=== PATIENT | female | born 1960 | race Caucasian/White ===

== ENCOUNTER 2020-02-23 07:26 | Emergency (ER) | payer BC, SELFPAY ==
[2020-02-23 07:42] VITALS: BP 136/69; PULSE 82; RESP 18; TEMP 36.7; O2SAT 97; BMI 42.5
--- NOTE | 2020-02-23 07:42 | ECG_ITS ---
Measurements Intervals [place] Rate: 72 P: 47 MS: 137 QRS: 51 QRSD: 92 T: 47 QT: 411 QTc: 451 SINUS RHYTHM INTERPRETATION BASED ON A DEFAULT AGE OF 40 YEARS Compared to ECG 08/31/2018 05:42:49 Myocardial infarct finding no longer present Electronically Signed On 02-23-2020 15:00:10 CDT by Michael Watson M.D. [id number]
--- NOTE | 2020-02-23 07:42 | XR_ITS ---
WS: [id number] CHEST XRAY TECHNIQUE: Portable chest. CLINICAL INFORMATION: cp COMPARISON: August 07, 2018 FINDINGS: Heart: Normal cardiac silhouette. Lungs: Lungs are clear. No consolidation or pleural effusion. Bones: Normal visualized bony structures. XR/XR chest 1V portable [id number] IMPRESSION: Normal chest
--- NOTE | 2020-02-23 07:43 | W.ED.CHESTPA ---
HPI - Chest Pain General: Chief Complaint: Chest Pain Stated Complaint: CHEST PAIN Time Seen by Provider: 02/23/20 07:33 Source: patient Mode of arrival: ambulatory Limitations: no limitations History of Present Illness: HPI narrative: Patient comes in today for complaints of 2 episodes of chest pain this morning. First episode occurred while she was sleeping about 3:00. Patient states she was awakened by some chest discomfort that went away suddenly and she went back to sleep. About 3 hours later patient had another episode of chest pain that occurred when she had a coughing spell. Patient states that the pain lasted about 30 minutes and radiated up into her left neck, during that time she took 3 nitro tablets that she had left from 2 years ago. Patient does have a history of coronary artery disease with 3 stents placed in 2018. Patient did have a stress test done at that time 2. Dr. Pack is patient's rn practitioner. MD complaint: chest pain Pertinent past history: coronary artery disease Timing of current episode: episodic Onset: during rest Pain location: parasternal Pain radiation: neck Severity: moderate Quality: sharp Relieving factors: nitroglycerin Exacerbating factors: nothing Treatment prior to arrival: nitroglycerin Review of Systems General: Reports: 10 or more systems reviewed and unremarkable except in HPI and below Card: Reports: chest pain [facility] ED PFSH: Social History Smoking and tobacco status: former smoker Physical Exam Const: COMMON NORMALS: no apparent distress and oriented x3 GENERAL APPEARANCE: cooperative HENMT: COMMON NORMALS: normocephalic, TM's normal bilaterally and external nose normal HEAD & SCALP: normal to inspection and normocephalic NOSE: external nose normal TYMPANIC MEMBRANE: TM's normal bilaterally MOUTH: oral and palatal mucosa normal THROAT: posterior oropharynx normal Eye: GENERAL EYE: normal appearance of both eyes Neck/C-Spine: COMMON NORMALS: full ROM Lymph: LYMPHATIC: no lymphadenopathy noted Chest: COMMONS NORMALS: inspection of chest normal Resp: COMMON NORMALS: normal respiratory effort EFFORT & INSPECTION: Yes able to speak in complete sentences Cardio: COMMON NORMALS: regular rate and regular rhythm RATE: regular rate RHYTHM: regular rhythm GI: COMMON NORMALS: non-tender : COMMON NORMALS: Yes no CVA tenderness BLADDER/KIDNEY EXAM: Yes no CVA tenderness Back/Pelvis: COMMON NORMALS: no CVA tenderness and thoracic and lumbar spine normal to inspection Extremity: COMMON NORMALS: normal to inspection Neuro: COMMON NORMALS: oriented x3 and moves all extremities Psych: COMMON NORMALS: mental status grossly normal and cooperative Skin: COMMON NORMALS: no rashes or lesions noted GENERAL SKIN EXAM: no rashes or lesions noted Course ED course: 0850, patient resting well. Patient reports headache but otherwise is chest pain-free. Reviewed first labs with the troponin being negative. Recommended repeat troponin and 2 hours at 10:00. Patient reported understanding and agreed to plan. Vital Signs: Vital signs: Vital Signs Temperature 98.0 F 02/23/20 07:42 Pulse Rate 81 02/23/20 09:14 Respiratory Rate 15 02/23/20 09:14 Blood Pressure 128/61 02/23/20 09:14 Pulse Oximetry 99 02/23/20 09:14 MDM - Chest Pain MDM Narrative: Medical decision making narrative: Patient comes in today for 2 episodes of intermittent chest pain starting at 3:00 this morning. Patient at this time is resolved with chest pain. Patient appears well. Vital signs are normal. Respirations were even lungs were clear to auscultation. Differential diagnosis includes ACS, stable angina, muscle spasm, esophageal spasm. Patient reported that the second episode of chest pain occurred when patient had a significant coughing spell. Patient also reported that the first time woke her up out of sleep though but she was able to go right back to sleep afterwards. Suspect may be a muscle spasm due to the coughing spell. Laboratory values indicated no acute cardiac injury and EKG noted no abnormalities. Chest x-ray was normal. We will have patient follow-up with cardiology for further evaluation and treatment due to patient's history. Patient reports understanding agreed to plan. Lab Data: Labs: Lab Results 02/23/20 02/23/20 02/23/20 Range/Units 07:57 08:00 08:00 WBC 4.8 (4.0-10.0) 10^3/ uL RBC 4.27 (4.1-5.3) 10^6/u L Hgb 12.4 (11.5-15.3) g/dL Hct 39.6 (37.0-47.0) % MCV 92.7 (81-99) fL MCH 29.0 (28.0-34.0) pg MCHC 31.3 (30.0-36.0) g/dL RDW 14.8 (12.1-15.1) % Plt Count 328 (130-400) 10^3/c mm MPV 9.3 (7.4-10.4) fL Neut % (Auto) 62.0 % Lymph % (Auto) 25.9 % [place] % (Auto) 9.6 % Eos % (Auto) 1.7 % Baso % (Auto) 0.6 % Neut # (Auto) 3.0 (1.8-7.7) 10^3/u L Lymph # (Auto) 1.2 (0.8-4.8) 10^3/u L [place] # (Auto) 0.5 (0.2-0.9) 10^3/u L Eos # (Auto) 0.1 (0.0-0.8) 10^3/u L Baso # (Auto) 0.0 (0.0-0.1) 10^3/u L Nucleated RBC % (a uto) 0 % Nucleated RBCs # 0.0 /100WBC Sodium 141 (136-145) mmol/L Potassium 3.7 (3.5-5.1) mmol/L Chloride 99 (98-107) mmol/L Carbon Dioxide 28 (22-29) mmol/L Anion Gap 17.7 (5-19) BUN 10 (6-20) mg/dL Creatinine 0.7 (0.5-0.9) mg/dL GFR Calculation 85.6 L (90-130) mL/min Glucose 89 (65-115) mg/dL Calculated Osmolal ity 287 (285-295) mOsm/k g Calcium 9.8 (8.5-10.5) mg/dL Total Bilirubin 0.3 (0.15-1.2) mg/dL AST 22 (0-32) U/L ALT 20 (0-33) U/L Alkaline Phosphata se 96 (35-105) IU/L Troponin T Baselin e (0-10) ng/mL Troponin T 120 Min [place] (0-10) ng/mL Delta Troponin T (0-10) ABS# Total Protein 7.1 (6.6-8.7) g/dL Albumin 4.5 (3.5-5.2) g/dL Globulin 2.6 (1.3-4.6) g/dL Lipase 19 (13-60) U/L Urine Color Colorless (Yellow) Urine Appearance Clear (CLEAR) Urine pH 5.0 (5-7) Ur Specific Gravit y 1.007 (1.005-1.030) Urine Protein Neg (Negative) Urine Glucose (UA) Norm (Normal) Urine Ketones Negative (Negative) Urine Blood Neg (Negative) Urine Nitrate Negative (Negative) Urine Bilirubin Neg (NEGATIVE) Urine Urobilinogen Norm (Negative) mg/dL Ur Leukocyte Elenita ase Negative (Negative) 02/23/20 02/23/20 Range/Units 08:00 10:00 WBC (4.0-10.0) 10^3/ uL RBC (4.1-5.3) 10^6/u L Hgb (11.5-15.3) g/dL Hct (37.0-47.0) % MCV (81-99) fL MCH (28.0-34.0) pg MCHC (30.0-36.0) g/dL RDW (12.1-15.1) % Plt Count (130-400) 10^3/c mm MPV (7.4-10.4) fL Neut % (Auto) % Lymph % (Auto) % [place] % (Auto) % Eos % (Auto) % Baso % (Auto) % Neut # (Auto) (1.8-7.7) 10^3/u L Lymph # (Auto) (0.8-4.8) 10^3/u L [place] # (Auto) (0.2-0.9) 10^3/u L Eos # (Auto) (0.0-0.8) 10^3/u L Baso # (Auto) (0.0-0.1) 10^3/u L Nucleated RBC % (a uto) % Nucleated RBCs # /100WBC Sodium (136-145) mmol/L Potassium (3.5-5.1) mmol/L Chloride (98-107) mmol/L Carbon Dioxide (22-29) mmol/L Anion Gap (5-19) BUN (6-20) mg/dL Creatinine (0.5-0.9) mg/dL GFR Calculation (90-130) mL/min Glucose (65-115) mg/dL Calculated Osmolal ity (285-295) mOsm/k g Calcium (8.5-10.5) mg/dL Total Bilirubin (0.15-1.2) mg/dL AST (0-32) U/L ALT (0-33) U/L Alkaline Phosphata se (35-105) IU/L Troponin T Baselin e 9 (0-10) ng/mL Troponin T 120 Min [place] 7.55 (0-10) ng/mL Delta Troponin T -1.45 L (0-10) ABS# Total Protein (6.6-8.7) g/dL Albumin (3.5-5.2) g/dL Globulin (1.3-4.6) g/dL Lipase (13-60) U/L Urine Color (Yellow) Urine Appearance (CLEAR) Urine pH (5-7) Ur Specific Gravit y (1.005-1.030) Urine Protein (Negative) Urine Glucose (UA) (Normal) Urine Ketones (Negative) Urine Blood (Negative) Urine Nitrate (Negative) Urine Bilirubin (NEGATIVE) Urine Urobilinogen (Negative) mg/dL Ur Leukocyte Elenita ase (Negative) EKG Data^: EKG 1: Attestation: I personally reviewed and interpreted this EKG as follows: (0755, NSR, no ectopy, no ST elevation, rate regular @ 72 bpm) Discharge Plan Discharge Patient Disposition: Home, Self-Care Clinical Impression: Atypical chest pain Condition: Stable Prescriptions: New Nitrostat 0.4 mg tablet, sublingual 0.4 mg SUBLINGUAL Q5M PRN (Reason: chest pain) Qty: 20 RF: 0 No Action clopidogrel 75 mg tablet 75 mg PO DAILY Qty: 90 RF: 3 multivitamin Tablet 1 tab PO DAILY RF: 0 cyclobenzaprine 10 mg tablet 10 mg PO Q6H PRN (Reason: Pain) RF: 0 citalopram 40 mg tablet 40 mg PO DAILY RF: 0 trazodone 50 mg tablet 50 mg PO BEDTIME RF: 0 prednisone 5 mg tablet 5 mg PO DAILY RF: 0 acetaminophen-codeine 300-30 mg tablet 1 tab PO Q6H PRN (Reason: Pain) RF: 0 alprazolam 0.25 mg tablet 0.25 mg PO BID PRN (Reason: Anxiety) RF: 0 Vitamin C 500 mg Tablet 500 mg PO DAILY RF: 0 pantoprazole 40 mg tablet,delayed release (DR/EC) 40 mg PO DAILY RF: 0 aspirin 81 mg Tablet,Chewable 81 mg PO DAILY RF: 0 montelukast 10 mg tablet 10 mg PO DAILY RF: 0 pravastatin 10 mg tablet 5 mg PO DAILY RF: 0 Referrals: Zach Siu DO [Primary Care Provider] - Discharge Diet: Usual diet Discharge Activity: Increase activity as tolerated Patient Instructions: Chest Pain (ED) Activity Restrictions/Additional Instructions: Drink plenty of water. Activity as tolerated. Continue with routine medications as directed. Follow-up with primary care in 1 week. Case management will contact you regarding appointment follow-up with cardiology. Coding Level of Care Code ED Technical Rep for [employer] Fwd Exam Comprehensive
[2020-02-23 07:54] VITALS: O2SAT 97
[2020-02-23 08:16] LABS: Add Urine Microscopic? NO
[2020-02-23 08:21] LABS: Basophils % 0.6 %; Eosinophils # 0.1 10^3/uL (0.0-0.8); Eosinophils % 1.7 %; Hematocrit 39.6 % (37.0-47.0); Hemoglobin 12.4 g/dL (11.5-15.3); Lymphocytes # 1.2 10^3/uL (0.8-4.8); Lymphocytes % 25.9 %; Mean Corpuscular HGB Conc 31.3 g/dL (30.0-36.0); Mean Corpuscular Volume 92.7 fL (81-99); Mean Platelet Volume 9.3 fL (7.4-10.4); Monocytes # 0.5 10^3/uL (0.2-0.9); Monocytes % 9.6 %; Nucleated Red Blood Cells % 0 %; Platelet Count 328 10^3/cmm (130-400); Red Blood Count 4.27 10^6/uL (4.1-5.3); Red Cell Distribution Width 14.8 % (12.1-15.1); White Blood Count 4.8 10^3/uL (4.0-10.0)
[2020-02-23 08:24] LABS: Bilirubin Urine Neg (NEGATIVE); Blood Urine Neg (Negative); Glucose Urine UA Norm (Normal); Ketones Urine Negative (Negative); Leukocyte Esterase Urine Negative (Negative); Nitrate Urine Negative (Negative); Protein Urine Neg (Negative); Specific Gravity, Urine 1.007 (1.005-1.030); Urine Appearance Clear (CLEAR); Urine Color Colorless (Yellow); Urobilinogen Urine Norm (Negative)
[2020-02-23 08:39] LABS: Alanine Aminotransferase 20 U/L (0-33); Albumin Level 4.5 g/dL (3.5-5.2); Alkaline Phosphatase 96 IU/L (35-105); Anion Gap 17.7 (5-19); Aspartate Amino Transferase 22 U/L (0-32); Blood Urea Nitrogen 10 mg/dL (6-20); Calcium 9.8 mg/dL (8.5-10.5); Carbon Dioxide 28 mmol/L (22-29); Chloride 99 mmol/L (98-107); Globulin 2.6 g/dL (1.3-4.6); Glomerular Filtration Rate 85.6 mL/min (90-130); Glucose 89 mg/dL (65-115); Lipase 19 U/L (13-60); Osmolality Calculated 287 mOsm/kg (285-295); Potassium 3.7 mmol/L (3.5-5.1); Sodium 141 mmol/L (136-145); Total Bilirubin 0.3 mg/dL (0.15-1.2); Total Protein 7.1 g/dL (6.6-8.7)
[2020-02-23 08:43] LABS: Troponin(5th) Baseline 9 ng/mL (0-10)
[2020-02-23] MEDS: acetaminophen 500 mg Tablet 1000 MG PO (09:13)
[2020-02-23] MEDS: aspirin 81 mg Chew Tablet 162 MG PO (09:13)
[2020-02-23 09:14] VITALS: BP 128/61; PULSE 81; RESP 15; O2SAT 99
--- NOTE | 2020-02-23 09:42 | ECG_ITS ---
Measurements Intervals [place] Rate: 73 P: 44 TN: 132 QRS: 48 QRSD: 93 T: 47 QT: 408 QTc: 450 SINUS RHYTHM INTERPRETATION BASED ON A DEFAULT AGE OF 40 YEARS Compared to ECG 08/31/2018 05:42:49 Myocardial infarct finding no longer present Electronically Signed On 02-23-2020 15:03:22 CDT by Michael Watson M.D. [id number]
[2020-02-23 10:19] LABS: Troponin 5 2HR 7.55 ng/mL (0-10)
[2020-02-23 10:25] LABS: Troponin 5 2HR Delta -1.45 ABS# (0-10)
[2020-02-23 10:52] VITALS: BP 133/62; PULSE 73; RESP 16; O2SAT 98
--- NOTE | 2020-02-26 11:35 | DCPLANNER ---
banking manager had message to schedule a follow up appointment with [facility]. banking manager called [facility], spoke with Jenniffer. A follow up appointment is scheduled for March at 10:[address] Pack. banking manager called patient with appointment information.
--- NOTE | 2020-04-24 10:17 | DCPLANNER ---
Patient did attend appointment scheduled for 03.05.20 with [facility].
== END 2020-02-23 10:53 | disposition home or self-care (01) ==
PROVIDERS: Emergency Provider Nurse Practitioner Family; Family Provider Electrodiagnostic Medicine; PCP Electrodiagnostic Medicine
DX: R07.89 Other chest pain (principal); Z79.02 Long term (current) use of antithrombotics/antiplatelets; Z79.82 Long term (current) use of aspirin; Z87.891 Personal history of nicotine dependence
CPT/HCPCS: 12345; 36415; 71045; 80053; 81003; 83690; 84484; 85025; 93005; 99283

== ENCOUNTER 2021-05-06 07:27 | Outpatient (CLI) | payer BC, SELFPAY ==
--- NOTE | 2021-05-06 07:30 | XR_ITS ---
WS: [id number] CHEST 2 VIEWS HISTORY: PNEUMONIA/ACUTE SINUSITIS COMPARISON: 02/23/2020 Lungs: Focal ill-defined areas of subsegmental increased opacification at the lung bases. Most consis tent with areas of pneumonitis or subsegmental atelectasis. Similar finding at the lingula as compare d to 02/23/2020. No dense areas of consolidation. No effusions. Cardiac size: Normal. Mediastinum/Aorta: Normal mediastinum. Bones: Mild spondylosis thoracic spine. XR/XR chest 2V* [id number] IMPRESSION: Subsegmental areas of pneumonitis or atelectasis in the lower lung davis. No p neumonia.
== END 2021-05-06 07:28 | disposition home or self-care (01) ==
PROVIDERS: PCP Electrodiagnostic Medicine; Visit Provider Electrodiagnostic Medicine
DX: J18.9 Pneumonia, unspecified organism (principal); J01.90 Acute sinusitis, unspecified
CPT/HCPCS: 71046

== ENCOUNTER 2021-12-23 11:29 | Emergency (ER) | payer BC, SELFPAY ==
[2021-12-23 11:34] VITALS: BP 163/82; PULSE 72; RESP 16; TEMP 36.8; O2SAT 97; BMI 40.4
--- NOTE | 2021-12-23 11:34 | ED_ITS ---
HPI - Chest Pain General: Chief Complaint: Chest Pain Stated Complaint: Chest pains had 3 stints in 2018 Time Seen by Provider: 12/23/21 11:34 History of Present Illness: Ms. Mcnamara is a 61-year-old lady with hypertension, hyperlipidemia, history of known CAD with PCI in 2018, remote history of tobaccoism presenting to the emergency department due to chest discomfort. She reports more or less being at her baseline health over the past few days, she reports moving boxes and active yesterday and minimally more short of breath than typical. This morning she developed a headache in the front and back of her head which is atypical for her headaches as well as a abnormal feeling that she has difficulty describing in her chest. She says that it is similar to a tightness perhaps but otherwise has difficulty characterizing it. Additionally she felt her heart pounding. She checked her blood pressure was was normal at this time. This persisted for some time and then has slowly improved though still mildly present. At worst intensity moderate to severe. She had mild associated queasiness however no other typical cardiac features. No other specific changes in health, exacerbating, relieving factors. Patient was vaccinated and received booster shot for COVID-19. Pertinent past history: coronary artery disease Onset (ago): hour(s) Timing of current episode: constant and still present Onset: during rest Pain location: substernal Pain radiation: none Quality: other Relieving factors: nothing Exacerbating factors: nothing Associated symptoms: Reports other Review of Systems General: Reports: 10 or more systems reviewed and unremarkable except in HPI and below PFSH ED 2 PFSH: Medical History CAD (coronary artery disease) HTN (hypertension) Hyperlipidemia Obesity Surgical History S/P rotator cuff repair bilateral Social History Smoking and tobacco status: former smoker Alcohol intake: never Physical Exam Const: COMMON NORMALS: alert GENERAL APPEARANCE: cooperative and well dev eloped HENMT: COMMON NORMALS: normocephalic and atraumatic HEAD & SCALP: normocephalic and atraumatic Eye: COMMON NORMALS: conjunctivae normal CONJUNCTIVA: Yes conjunctivae normal SCLERA: sclerae normal Neck/C-Spine: COMMON NORMALS: supple GENERAL: Yes trachea midline Resp: COMMON NORMALS: normal respiratory effort and clear to auscultation bilaterally EFFORT & INSPECTION: Yes able to speak in complete sentences AUSCULTATION: clear to auscultation bilaterally Cardio: COMMON NORMALS: regular rate and regular rhythm RATE: regular rate RHYTHM: regular rhythm GI: COMMON NORMALS: Soft to palpation PALPATION: Yes Soft to palpation and No Tenderness to palpation present (GI) PERCUSSION: normal to percussion Extremity: GENERAL: Yes normal exam except as noted and No edema Neuro: COMMON NORMALS: moves all extremities SENSORIUM/ORIENTATION: Yes alert and No Orientation impaired Psych: COMMON NORMALS: mental status grossly normal and Normal thought process present THOUGHT PROCESS: Normal thought process present Course ED course: - Patient was seen and evaluated by me at bedside - Patient placed on cardiac monitors, IV access obtained - Initial evaluation notable for exam as above - Aspirin given - Labs notable for no leukocytosis, normal hemoglobin. No acute electrolyte derangement to explain symptoms. Delta troponin is negative. - Imaging notable for negative chest x-ray for obvious cause patient symptoms - Upon serial reexamination after treatment the patient was improved - Based on patient history, evaluation, labs, and imaging as interpreted the most likely cause of the patient's condition is unspecified chest pain - The results of ED evaluation were discussed with the patient including potential disposition options. I discussed heart score risk ratification including estimated risk of major adverse cardiac events. I offered the patient admission which she declined in preference of outpatient testing. I discussed prescriptions and/or symptomatic cares (if applicable) including appropriate and responsible use, followup plan, and return precautions. The patient verbalized understanding and felt safe for discharge. - Patient discharged in satisfactory condition. Note: Click bubbles or prepopulated davis in note writing are used for assistance with data collection and billing and are inherently more limited than narrative and other text portions of this note. Please use narrative for additional clinical history and defer to narrative/free test for any case of contradictory information. If information appears in only free text or click bubble it should be considered present or absent as reported. Please contact note sports book writer for clarifications of clinical information or contradictory information. MDM is a brief summary, contradictory or erroneous seeming information should be clarified and full note should be reviewed. Vital Signs: Vital signs: Vital Signs Temperature 97.9 F 12/23/21 14:58 Pulse Rate 69 02/22/22 15:26 Respiratory Rate 16 12/23/21 15:26 Blood Pressure 119/71 12/23/21 15:26 Pulse Oximetry 93 12/23/21 15:26 MDM - Chest Pain Medical Decision Making 61-year-old lady with history of CAD, hypertension, hyperlipidemia presenting with headache and chest pain. No evidence of acute [place] on ED evaluation. Offered patient admission after discussion of heart score which the patient declined in favor of outpatient testing. Satisfactory for additional outpatient management and testing with strict return precautions. Medical Records I reviewed the patient's medical records. Lab Data I reviewed the patient's lab results. : 12/23/21 11:45 12/23/21 11:45 Radiology Impressions Chest X-Ray 12/23/21 11:37 IMPRESSION: 1. No acute cardiopulmonary finding. 2. Pulmonary parenchymal scarring in the lingula stable in appearance. Laboratory Results WBC 5.7 10^3/uL (4.0-10.0) 12/23/21 11:45 RBC 4.44 10^6/uL (4.1-5.3) 12/23/21 11:45 Hgb 13.2 g/dL (11.5-15.3) 12/23/21 11:45 Hct 41.1 % (37.0-47.0) 12/23/21 11:45 MCV 92.6 fl (81-99) 12/23/21 11:45 MCH 29.7 pg (28.0-34.0) 12/23/21 11:45 MCHC 32.1 g/dL (30.0-36.0) 12/23/21 11:45 RDW 15.4 % (12.1-15.1) H 12/23/21 11:45 Plt Count 266 10^3/cmm (130-400) 12/23/21 11:45 MPV 9.2 fL (7.4-10.4) 12/23/21 11:45 Neut % (Auto) 72.8 % 12/23/21 11:45 Lymph % (Auto) 16.3 % 12/23/21 11:45 [place] % (Auto) 8.6 % 12/23/21 11:45 Eos % (Auto) 1.4 % 12/23/21 11:45 Baso % (Auto) 0.7 % 12/23/21 11:45 Neut # (Auto) 4.16 10^3/uL (1.8-7.7) 12/23/21 11:45 Lymph # (Auto) 0.9 10^3/uL (0.8-4.8) 12/23/21 11:45 [place] # (Auto) 0.5 10^3/uL (0.2-0.9) 12/23/21 11:45 Eos # (Auto) 0.1 10^3/uL (0.0-0.8) 12/23/21 11:45 Baso # (Auto) 0.0 10^3/uL (0.0-0.1) 12/23/21 11:45 Nucleated RBC % (auto) 0 % 12/23/21 11:45 Nucleated RBCs # 0.0 /100WBC 12/23/21 11:45 Sodium 140 mmol/L (136-145) 12/23/21 11:45 Potassium 3.9 mmol/L (3.5-5.1) 12/23/21 11:45 Chloride 103 mmol/L (98-107) 12/23/21 11:45 Carbon Dioxide 26 mmol/L (22-29) 12/23/21 11:45 Anion Gap 14.9 (5-19) 12/23/21 11:45 BUN 19 mg/dL (8-23) 12/23/21 11:45 Creatinine 0.8 mg/dL (0.5-0.9) 12/23/21 11:45 GFR Calculation 73.2 mL/min (90-130) L 12/23/21 11:45 Glucose 91 mg/dL (65-115) 12/23/21 11:45 Calculated Osmolality 292 mOsm/kg (285-295) 12/23/21 11:45 Calcium 9.9 mg/dL (8.5-10.5) 12/23/21 11:45 Total Bilirubin 0.3 mg/dL (0.15-1.2) 12/23/21 11:45 AST 24 U/L (0-32) 12/23/21 11:45 ALT 25 U/L (0-33) 12/23/21 11:45 Alkaline Phosphatase 83 IU/L (35-105) 12/23/21 11:45 Troponin T Baseline 9 ng/L (0-10) 12/23/21 11:45 Troponin T 120 Minute 8.03 ng/L (0-10) 12/23/21 14:02 Delta Troponin T -0.97 ABS# (0-10) L 12/23/21 14:02 NT-Pro-B Natriuret Pep 66 pg/mL (0-125) 12/23/21 11:45 Total Protein 6.3 g/dL (6.6-8.7) L 12/23/21 11:45 Albumin 4.5 g/dL (3.5-5.2) 12/23/21 11:45 Globulin 1.8 g/dL (1.3-4.6) 12/23/21 11:45 Lipase 33 U/L (13-60) 12/23/21 11:45 EKG Data EKG 1: I personally reviewed and interpreted this EKG as follows: EKG interpretation date: 12/23/21 EKG interpretation time: 11:40 Interpretation: Twelve-lead EKG shows a regular rhythm at a rate of 67. IA interval 142, QRS duration 92, QTc 422. Normal axis. Interpretation: Sinus rhythm EKG 2: I personally reviewed and interpreted this EKG as follows: EKG interpretation date: 12/23/21 EKG interpretation time: 14:39 Interpretation: Twelve-lead EKG shows a regular rhythm and rate of 63. IA interval 143, QRS duration 105, QTc 414. Normal axis. Interpretation: Sinus rhythm. Discharge Plan Discharge Patient Disposition: Home Clinical Impression: Chest pain, Headache Condition: Stable Prescriptions: New isosorbide mononitrate 30 mg tablet extended release 24 hr 30 mg PO DAILY Qty: 30 0RF No Action multivitamin Tablet 1 tab PO DAILY 0RF trazodone 50 mg tablet 50 mg PO BEDTIME 0RF prednisone 5 mg tablet 5 mg PO QAM 0RF acetaminophen-codeine 300-30 mg tablet 1 - 2 tab PO Q8H PRN (Reason: Pain) 0RF alprazolam 0.25 mg tablet 0.25 mg PO BID PRN (Reason: Anxiety) 0RF ascorbic acid (vitamin C) [Vitamin C] 500 mg Tablet 500 mg PO BID 0RF pantoprazole 40 mg tablet,delayed release (DR/EC) 40 mg PO BEDTIME 0RF aspirin 81 mg Tablet,Chewable 81 mg PO BEDTIME 0RF montelukast 10 mg tablet 10 mg PO QAM 0RF nitroglycerin [Nitrostat] 0.4 mg tablet, sublingual 0.4 mg SUBLINGUAL Q5M PRN (Reason: chest pain) Qty: 20 0RF Rx Instructions: do not exceed 3 doses per episode escitalopram oxalate 20 mg tablet 20 mg PO QAM 0RF pravastatin 10 mg tablet 10 mg PO BEDTIME 0RF Discharge Orders: Discharge ED (Routine); Ordered 12/23/21 Ordered By: Sergey Marroquin Referrals: Zach Siu DO [Primary Care Provider] - Discharge Diet: Usual diet Discharge Activity: Resume usual activity Patient Instructions: Chest Pain (ED), Acute Headache (ED) Activity Restrictions/Additional Instructions: Thank you for visiting the emergency department. You were seen and evaluated for chest pain and headache. The exact cause of the symptoms is unclear. As discussed you are moderate risk by heart score and after discussion are electing to proceed with outpatient testing. Please follow-up with a vp ad sales west. Please return to the emergency department for worsening symptoms or anything else that you are concerned about and feel needs emergency department evaluation. Coding Level of Care Code ED Information Technology Auditor for Alysha Fwantoine Exam Comprehensive
--- NOTE | 2021-12-23 11:37 | ECG_ITS ---
[facility] Test Date: 2021-12-23 Pat Name: Pauly Mcnamara Department: Room: Gender: Female Handkerchief Sample Clerk: : 1960 Requested By: Sergey Marroquin Order Number: [id number] Low MD: Elsi Pack M.D. Measurements Intervals [place] Rate: 67 P: 55 MA: 142 QRS: 64 QRSD: 92 T: 37 QT: 407 QTc: 431 Interpretive Statements SINUS RHYTHM Compared to ECG 02/23/2020 10:18:42 No significant changes Electronically Signed On 12-23-2021 17:42:42 ENVIRONMENTAL SERVICES LEAD by Elsi Pack M.D. [id number]
--- NOTE | 2021-12-23 11:37 | XR_ITS ---
WS: [id number] Exam: XR chest 1V portable [id number] Date/Time of Exam: 12/23/2021 11:45 AM Reason For Exam: chest pain Comparison 05/06/2021. The lungs are fully expanded. No acute infiltrates. Pulmonary parenchymal scarring noted in the lingu la unchanged in appearance. No pleural effusions. Normal cardiomediastinal silhouette. Unremarkable r egional bony elements. XR/XR chest 1V portable [id number] IMPRESSION: 1. No acute cardiopulmonary finding. 2. Pulmonary parenchymal scarring in the lingula stable in appearance.
[2021-12-23 12:00] VITALS: BP 125/63; PULSE 70; RESP 16; TEMP 36.8; O2SAT 94
[2021-12-23 12:01] LABS: Basophils % 0.7 %; Eosinophils # 0.1 10^3/uL (0.0-0.8); Eosinophils % 1.4 %; Hematocrit 41.1 % (37.0-47.0); Hemoglobin 13.2 g/dL (11.5-15.3); Lymphocytes # 0.9 10^3/uL (0.8-4.8); Lymphocytes % 16.3 %; Mean Corpuscular HGB Conc 32.1 g/dL (30.0-36.0); Mean Corpuscular Hemoglobin 29.7 pg (28.0-34.0); Mean Corpuscular Volume 92.6 fl (81-99); Mean Platelet Volume 9.2 fL (7.4-10.4); Monocytes # 0.5 10^3/uL (0.2-0.9); Monocytes % 8.6 %; Neutrophils # 4.16 10^3/uL (1.8-7.7); Neutrophils % 72.8 %; Nucleated Red Blood Cells % 0 %; Platelet Count 266 10^3/cmm (130-400); Red Blood Count 4.44 10^6/uL (4.1-5.3); Red Cell Distribution Width 15.4 % (12.1-15.1); White Blood Count 5.7 10^3/uL (4.0-10.0)
[2021-12-23] MEDS: aspirin 81 mg Chew Tablet 324 MG PO (12:09)
[2021-12-23 12:32] LABS: Alanine Aminotransferase 25 U/L (0-33); Albumin Level 4.5 g/dL (3.5-5.2); Alkaline Phosphatase 83 IU/L (35-105); Anion Gap 14.9 (5-19); Aspartate Amino Transferase 24 U/L (0-32); Blood Urea Nitrogen 19 mg/dL (8-23); Calcium 9.9 mg/dL (8.5-10.5); Carbon Dioxide 26 mmol/L (22-29); Chloride 103 mmol/L (98-107); Globulin 1.8 g/dL (1.3-4.6); Glomerular Filtration Rate 73.2 mL/min (90-130); Glucose 91 mg/dL (65-115); Lipase 33 U/L (13-60); NT Pro B Type Natriuretic Pept 66 pg/mL (0-125); Osmolality Calculated 292 mOsm/kg (285-295); Potassium 3.9 mmol/L (3.5-5.1); Sodium 140 mmol/L (136-145); Total Bilirubin 0.3 mg/dL (0.15-1.2); Total Protein 6.3 g/dL (6.6-8.7)
[2021-12-23 12:33] LABS: Troponin(5th) Baseline 9 ng/L (0-10)
--- NOTE | 2021-12-23 13:37 | ECG_ITS ---
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 Measurements Intervals [place] Rate: 63 P: 54 WI: 143 QRS: 69 QRSD: 105 T: 42 QT: 406 QTc: 418 Interpretive Statements SINUS RHYTHM Compared to ECG 12/23/2021 11:37:33 No significant changes Electronically Signed On 12-23-2021 17:44:21 SPIKEMAKING SUPERVISOR by Elsi Pack M.D. [id number]
[2021-12-23 13:54] VITALS: BP 137/60; PULSE 65; RESP 16; TEMP 36.6; O2SAT 95
[2021-12-23 14:42] LABS: Troponin 5 2HR 8.03 ng/L (0-10)
[2021-12-23 14:52] LABS: Troponin 5 2HR Delta -0.97 ABS# (0-10)
[2021-12-23 14:58] VITALS: BP 137/55; PULSE 67; RESP 14; TEMP 36.6; O2SAT 96
[2021-12-23 15:26] VITALS: BP 119/71; PULSE 69; RESP 16; O2SAT 93
--- NOTE | 2021-12-30 10:58 | DCPLANNER ---
Addendum entered by Melva Oneal 01/23/22 12:09: Patient had a follow up appointment scheduled for 01.05.22 with [facility] - patient did attend appointment. Original Note: global engineering manager had message to schedule a follow up appointment for patient with [facility]. global engineering manager called [facility], spoke with Jaclyn, gave clinic patients information. A follow up appointment was scheduled for Wednesday, January 05, 2022 at 2:00 with REGULATORY AGENCY DIRECTOR, Loan Cox. global engineering manager called patient and gave patient appointment information.
== END 2021-12-23 15:28 | disposition home or self-care (01) ==
PROVIDERS: Emergency Provider Emergency Medicine; PCP Electrodiagnostic Medicine
DX: R07.9 Chest pain, unspecified (principal); R51.9 Headache, unspecified; Z79.82 Long term (current) use of aspirin; I25.10 Atherosclerotic heart disease of native coronary artery without angina pectoris; I10 Essential (primary) hypertension; E78.5 Hyperlipidemia, unspecified; Z87.891 Personal history of nicotine dependence
CPT/HCPCS: 36415; 71045; 80053; 83690; 83880; 84484; 85025; 93005; 99285

== ENCOUNTER 2022-07-10 22:58 | Emergency (ER) | payer MEDICAID, SELFPAY ==
[2022-07-10 23:00] VITALS: BP 166/84; PULSE 64; RESP 20; TEMP 36.5; O2SAT 98; BMI 40.6
--- NOTE | 2022-07-10 23:01 | ECG_ITS ---
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 Measurements Intervals Laverne Rate: 61 P: 42 SC: 143 QRS: 27 QRSD: 97 T: 29 QT: 417 QTc: 422 Interpretive Statements SINUS RHYTHM Compared to ECG 12/23/2021 14:36:52 No significant changes Electronically Signed On 07-12-2022 13:22:24 CDT by Dontrell Morales M.D. [id number]
--- NOTE | 2022-07-10 23:09 | XRR_ITS ---
PROCEDURE INFORMATION: Exam: XR Chest Exam date and time: 07/10/2022 11:57 PM Age: 62 years old Clinical indication: Shortness of breath; Additional info: Cp TECHNIQUE: Imaging protocol: Radiologic exam of the chest. Views: 1 view. COMPARISON: CR XR chest 1V portable [id number] 12/23/2021 11:52 AM FINDINGS: Lungs: Bibasilar atelectasis versus minimal infiltrate. Pleural spaces: Unremarkable. No pleural effusion. No pneumothorax. Heart/Mediastinum: Borderline cardiomegaly. Bones/joints: Unremarkable. XR/XR chest 1V portable [id number] IMPRESSION: 1. Bibasilar atelectasis versus minimal infiltrate. 2. Borderline cardiomegaly.
[2022-07-10 23:25] LABS: Basophils % 0.6 %; Eosinophils # 0.1 10^3/uL (0.0-0.8); Eosinophils % 2.2 %; Hematocrit 40.1 % (37.0-47.0); Hemoglobin 12.7 g/dL (11.5-15.3); Lymphocytes # 1.9 10^3/uL (0.8-4.8); Lymphocytes % 30.4 %; Mean Corpuscular HGB Conc 31.7 g/dL (30.0-36.0); Mean Corpuscular Hemoglobin 29.1 pg (28.0-34.0); Mean Corpuscular Volume 91.8 fl (81-99); Mean Platelet Volume 9.5 fL (7.4-10.4); Monocytes # 0.5 10^3/uL (0.2-0.9); Monocytes % 7.8 %; Neutrophils # 3.69 10^3/uL (1.8-7.7); Neutrophils % 58.7 %; Nucleated Red Blood Cells % 0 %; Platelet Count 275 10^3/cmm (130-400); Red Blood Count 4.37 10^6/uL (4.1-5.3); Red Cell Distribution Width 15.1 % (12.1-15.1); White Blood Count 6.3 10^3/uL (4.0-10.0)
[2022-07-10 23:47] LABS: Troponin(5th) Baseline 7 ng/L (0-10)
[2022-07-10 23:55] LABS: Creatine Phosphokinase 82 U/L (26-192); NT Pro B Type Natriuretic Pept 88 pg/mL (0-125)
[2022-07-11 00:48] LABS: D Dimer 0.47 ug/mIFEU (0-0.59)
--- NOTE | 2022-07-11 01:04 | ECG_ITS ---
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 Measurements Intervals Magnet Rate: 67 P: 44 MD: 149 QRS: 28 QRSD: 94 T: 29 QT: 416 QTc: 442 Interpretive Statements SINUS RHYTHM Compared to ECG 07/10/2022 23:04:27 No significant changes Electronically Signed On 07-12-2022 13:30:52 CDT by Dnotrell Morales M.D. [id number]
[2022-07-11 01:25] LABS: Troponin 5 2HR 6.16 ng/L (0-10)
[2022-07-11 01:27] LABS: Troponin 5 2HR Delta -0.84 ABS# (0-10)
--- NOTE | 2022-07-11 01:41 | ED_ITS ---
HPI - Chest Pain General: Chief Complaint: Chest Pain Stated Complaint: headache, cp Time Seen by Provider: 07/11/22 00:13 Source: patient History of Present Illness: 62-year-old female with a history of coronary disease. She had 3 stents placed in her heart 2 years ago. She has been essentially stable since that time. She presents with chest discomfort, and mild shortness of breath that started this evening she had a headache as well she denies cough. She denies vomiting or diarrhea. Pain is improved currently, but still somewhat mildly present. MD complaint: chest discomfort Pertinent past history: coronary artery disease Onset (ago): hour(s) Timing of current episode: constant Prior episodes: Yes Onset: during rest Pain location: substernal Pain radiation: none Quality: aching and heaviness Relieving factors: nothing Exacerbating factors: nothing Associated symptoms: Reports dyspnea and nausea; Deny abdominal pain, diaphoresis, fever(s), leg edema, palpitations or vomiting Review of Systems Const: Denies: fever(s) or diaphoresis Eyes: Reports: change in vision (Blurry at 1 point improved currently) ENMT: Denies: throat pain Card: Reports: chest pain; Denies: palpitations Resp: Reports: dyspnea GI: Reports: nausea; Denies: abdominal pain or vomiting Neuro: Reports: headache(s) and dizziness (Improved) PFSH ED PFSH: Medical History CAD (coronary artery disease) HTN (hypertension) Hyperlipidemia Obesity Surgical History S/P rotator cuff repair bilateral Social History Smoking and tobacco status: former smoker Alcohol intake: never Physical Exam Const: COMMON NORMALS: no acute distress GENERAL APPEARANCE: cooperative; not ill appearing and not frail appearing HENMT: COMMON NORMALS: normocephalic, atraumatic and Normal external nose present HEAD & SCALP: normocephalic and atraumatic FACE & SINUS: normal facial exam NOSE: Normal external nose present Eye: COMMON NORMALS: Equal, round and reactive pupils present and EOMs intact bilaterally PUPIL: Yes Equal, round and reactive pupils present Neck/C-Spine: GENERAL: Yes trachea midline Chest: CHEST: Yes Symmetrical chest wall rise Resp: COMMON NORMALS: normal respiratory effort, No retractions, No use of accessory muscles and clear to auscultation bilaterally AUSCULTATION: clear to auscultation bilaterally Cardio: COMMON NORMALS: regular rate and regular rhythm RATE: regular rate RHYTHM: regular rhythm GI: COMMON NORMALS: Normal to inspection, nondistended, normoactive bowel sounds present Extremity: COMMON NORMALS: no pedal edema Neuro: YOSVANY COMA SCALE: document GCS findings Yosvany coma scale eye opening: Spontaneous Rincon coma scale verbal response: Orientated Yosvany coma scale motor response: Obey commands Yosvany coma scale total score: 15 SENSORY EXAM: Yes extremities (intact) Psych: COMMON NORMALS: speech normal SPEECH: Yes normal speech Skin: COMMON NORMALS: no rashes or lesions noted GENERAL SKIN EXAM: no rashes or lesions noted Course Vital Signs: Vital signs: Vital Signs Temperature 97.7 F 07/10/22 23:00 Pulse Rate 64 07/10/22 23:00 Respiratory Rate 20 H 07/10/22 23:00 Blood Pressure 166/84 07/10/22 23:00 Pulse Oximetry 98 07/10/22 23:00 Oxygen Delivery Me thod 07/10/22 23:00 MDM - Chest Pain Medical Decision Making EKG shows a normal sinus rhythm, with normal axis, intervals, heart rate 65, no acute ST changes. First troponin is 7. Delta is less than 1. BNP is 88. D- dimer is 0.47. White count 6.3. Chest x-rayShows some bibasilar atelectasis. CBC is normal. She is feeling better. She wishes to go home given her second troponin staying normal. She has a cardiology follow-up appointment scheduled. She will return for return of chest discomfort. Lab Data : 07/10/22 23:15 Radiology Impressions Chest X-Ray 07/10/22 23:09 IMPRESSION: 1. Bibasilar atelectasis versus minimal infiltrate. 2. Borderline cardiomegaly. Laboratory Results WBC 6.3 10^3/uL (4.0-10.0) 07/10/22 23:15 RBC 4.37 10^6/uL (4.1-5.3) 07/10/22 23:15 Hgb 12.7 g/dL (11.5-15.3) 07/10/22 23:15 Hct 40.1 % (37.0-47.0) 07/10/22 23:15 MCV 91.8 fl (81-99) 07/10/22 23:15 MCH 29.1 pg (28.0-34.0) 07/10/22 23:15 MCHC 31.7 g/dL (30.0-36.0) 07/10/22 23:15 RDW 15.1 % (12.1-15.1) 07/10/22 23:15 Plt Count 275 10^3/cmm (130-400) 07/10/22 23:15 MPV 9.5 fL (7.4-10.4) 07/10/22 23:15 Neut % (Auto) 58.7 % 07/10/22 23:15 Lymph % (Auto) 30.4 % 07/10/22 23:15 [place] % (Auto) 7.8 % 07/10/22 23:15 Eos % (Auto) 2.2 % 07/10/22 23:15 Baso % (Auto) 0.6 % 07/10/22 23:15 Neut # (Auto) 3.69 10^3/uL (1.8-7.7) 07/10/22 23:15 Lymph # (Auto) 1.9 10^3/uL (0.8-4.8) 07/10/22 23:15 [place] # (Auto) 0.5 10^3/uL (0.2-0.9) 07/10/22 23:15 Eos # (Auto) 0.1 10^3/uL (0.0-0.8) 07/10/22 23:15 Baso # (Auto) 0.0 10^3/uL (0.0-0.1) 07/10/22 23:15 Nucleated RBC % (auto) 0 % 07/10/22 23:15 Nucleated RBCs # 0.0 /100WBC 07/10/22 23:15 D-Dimer 0.47 ug/mIFEU (0-0.59) 07/10/22 23:15 Creatine Kinase 82 U/L (26-192) 07/10/22 23:15 Troponin T Baseline 7 ng/L (0-10) 07/10/22 23:15 Troponin T 120 Minute 6.16 ng/L (0-10) 07/11/22 01:00 Delta Troponin T -0.84 ABS# (0-10) L 07/11/22 01:00 NT-Pro-B Natriuret Pep 88 pg/mL (0-125) 07/10/22 23:15 Discharge Plan Discharge Patient Disposition: Home Clinical Impression: Chest pain Condition: Stable Prescriptions: No Action pravastatin 10 mg tablet 10 mg PO BEDTIME Qty: 90 0RF multivitamin Tablet 1 tab PO DAILY trazodone 50 mg tablet 50 mg PO BEDTIME prednisone 5 mg tablet 5 mg PO QAM acetaminophen-codeine 300-30 mg tablet 1 - 2 tab PO Q8H PRN (Reason: Pain) alprazolam 0.25 mg tablet 0.25 mg PO BID PRN (Reason: Anxiety) ascorbic acid (vitamin C) [Vitamin C] 500 mg Tablet 500 mg PO BID pantoprazole 40 mg tablet,delayed release (DR/EC) 40 mg PO BEDTIME aspirin 81 mg Tablet,Chewable 81 mg PO BEDTIME montelukast 10 mg tablet 10 mg PO QAM nitroglycerin [Nitrostat] 0.4 mg tablet, sublingual 0.4 mg SUBLINGUAL Q5M PRN (Reason: chest pain) Qty: 20 0RF Rx Instructions: do not exceed 3 doses per episode isosorbide mononitrate 30 mg tablet extended release 24 hr 30 mg PO DAILY Qty: 30 0RF Hold Instructions: headache escitalopram oxalate 20 mg tablet 20 mg PO QAM Discharge Orders: Discharge ED (Routine); Ordered 07/11/22 Ordered By: Meek Wynn Referrals: Zach Siu DO [Primary Care Provider] - Elsi Pack MD [Physician] - Patient Instructions: Opioid Safety Activity Restrictions/Additional Instructions: Call your applications developer on Wednesday, they may wish to perform more outpatient testing on you. Return for any worsening chest discomfort, shortness of breath, any other symptoms. Limit your activities until seen and cleared by them. Coding Level of Care Code ED Billing Supervisor for Enriquetag Fwd Exam Comprehensive
== END 2022-07-11 01:51 | disposition home or self-care (01) ==
PROVIDERS: Emergency Provider Emergency Medicine; PCP Electrodiagnostic Medicine
DX: R07.9 Chest pain, unspecified (principal); Z79.82 Long term (current) use of aspirin; I25.10 Atherosclerotic heart disease of native coronary artery without angina pectoris; I10 Essential (primary) hypertension; E78.5 Hyperlipidemia, unspecified; Z87.891 Personal history of nicotine dependence
CPT/HCPCS: 71045; 82550; 83880; 84484; 85025; 85378; 93005; 99285

== ENCOUNTER 2022-08-27 06:43 | Outpatient (CLI) | payer MEDICAID, SELFPAY ==
--- NOTE | 2022-08-27 06:56 | NMCV_ITS ---
NM ramona perf SPECT r/s* [id number] Pauly Mcnamara Age: 62 Gender: F : 1960 Exam Date: 08/27/2022 07:58 Ordering Phys: Elsi Pack MD ([email or web address]) Technologist: HOSSEIN Chandler Exam Location: [facility] Indications: CHEST PAIN STRESS TEST Please see separate stress test report in [facility] for full findings IMAGE PROTOCOL Rest/Stress 1 Lexiscan Day Radiopharmaceutical Dose (mCi) Administration Site Administered by Rest: Tc-99m 10.6 IV HOSSEIN Geller Sestamibi Stress:Tc-99m 32.9 IV HOSSEIN Geller Sestamibi Rest: 27-Aug-2022 60 Discovery 630 Stress: 27-Aug-2022 30 Discovery 630 0.4mg Lexiscan. Images obtained in supine and prone position. SPECT RESULTS Technical Quality: Excellent Raw Data Analysis: Normal Image Corrections: No attenuation or motion correction applied Summed Stress Score: 2 Summed Rest Score: 0 Summed Difference Score: 2 PERFUSION FINDINGS Small sized perfusion abnormality of mild severity of mid to apical anterior and apical lateral mulligan on stress images. FUNCTIONAL RESULTS (calculated via Gated SPECT) Stress Image LV EF (%): 77 Stress EDV (mL):66 TID: 0.82 Stress ESV (mL):15 FUNCTIONAL FINDINGS: The left ventricle is normal in size. Transient Ischemia Dilatation of 0.82. There is normal left ventricular systolic function. The left ventricular ejection fraction is normal with a value of 77%. There is normal left ventricular wall thickening with no regional wall motion abnormality. IMPRESSIONS 1. Small sized reversible perfusion abnormality of mild severity of mid to apical anterior and apical lateral mulligan. 2. This may represent small area of ischemia in left anterior descending artery territory. 3. Overall left ventricular systolic function is normal without regional wall motion abnormalities, LVEF=77%. 4. EKG portion of the study will be reported separately. Elsi Pack MD (Electronically Signed) Final Date: 30 August 2022 10:43 S
--- NOTE | 2022-08-27 06:56 | ECG_ITS ---
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 Interpretive Statements NAME OF STUDY: LEXISCAN SESTAMIBI STRESS TEST INDICATION: Chest Pain PROCEDURE: At the baseline, the blood pressure was 139/86 mmHg with a heart rate of 64 bpm. The electrocardiogram showed sinus rhythm, normal axis with nonspecific ST-T wave changes in lead III. The Lexiscan was infused over a period of 20 seconds. A total of 0.4 milligrams of Lexiscan was infused. The stress phase was continued for a total of 5 minutes. Heart rate at the end of the stress phase was 87 bpm with a blood pressure of 138/77 mmHg. The EKG at the peak infusion revealed sinus rhythm with no significant ST-T wave changes. Sestamibi was injected 20 seconds after the Lexiscan infusion. Blood pressure at the end of the recovery phase was 136/76 mmHg with a heart rate of 85 beats per minute. CONCLUSION: 1. No significant EKG changes with the LexiScan infusion. 2. No LexiScan induced chest pain or cardiac arrhythmia. 3. Normal blood pressure and heart rate response. 4. Sestamibi/sestamibi perfusion scan pending; see separate report. Electronically Signed On 08-31-2022 16:42:12 CDT by Elsi Pack M.D. [id number]
[2022-08-27 07:07] VITALS: BMI 39.6
[2022-08-27] MEDS: regadenoson 0.4 Mg/5 ml Syringe IVP (08:31)
[2022-08-27 08:49] VITALS: BP 136/76; PULSE 84
== END 2022-08-27 06:44 | disposition home or self-care (01) ==
LOC: CDL 06:46
PROVIDERS: PCP Electrodiagnostic Medicine; Visit Provider Internal Medicine Cardiovascular Disease
DX: R07.9 Chest pain, unspecified (principal)
CPT/HCPCS: 78452; 93017; A9500; J2785

== ENCOUNTER 2023-03-03 09:45 | Outpatient (CLI) | payer MEDICAID, SELFPAY ==
[2023-03-03 10:19] LABS: Basophils % 0.9 %; Eosinophils # 0.1 10^3/uL (0.0-0.8); Eosinophils % 1.3 %; Hematocrit 39.7 % (37.0-47.0); Hemoglobin 12.5 g/dL (11.5-15.3); Lymphocytes # 1.3 10^3/uL (0.8-4.8); Lymphocytes % 28.8 %; Mean Corpuscular HGB Conc 31.5 g/dL (30.0-36.0); Mean Corpuscular Hemoglobin 29.1 pg (28.0-34.0); Mean Corpuscular Volume 92.3 fl (81-99); Mean Platelet Volume 9.3 fL (7.4-10.4); Monocytes # 0.4 10^3/uL (0.2-0.9); Monocytes % 8.9 %; Neutrophils # 2.69 10^3/uL (1.8-7.7); Neutrophils % 59.7 %; Nucleated Red Blood Cells % 0 %; Platelet Count 279 10^3/cmm (130-400); Red Cell Distribution Width 13.8 % (12.1-15.1); White Blood Count 4.5 10^3/uL (4.0-10.0)
[2023-03-03 10:39] LABS: Blood Urea Nitrogen 13 mg/dL (8-23); Calcium 9.5 mg/dL (8.5-10.5); Carbon Dioxide 28 mmol/L (22-29); Chloride 103 mmol/L (98-107); Glomerular Filtration Rate 101.3 mL/min (90-130); Glucose 89 mg/dL (65-115); Osmolality Calculated 290 mOsm/kg (285-295); Sodium 140 mmol/L (136-145)
[2023-03-03 10:47] LABS: INR 1.07 (0.83-1.21); Prothrombin Time (Patient) 14.2 Seconds (12.0-15.1)
== END 2023-03-03 09:46 | disposition home or self-care (01) ==
LOC: LAB 09:49
PROVIDERS: PCP Electrodiagnostic Medicine; Visit Provider Specialist
DX: E78.5 Hyperlipidemia, unspecified (principal); I10 Essential (primary) hypertension; I25.10 Atherosclerotic heart disease of native coronary artery without angina pectoris; R07.89 Other chest pain
CPT/HCPCS: 36415; 80048; 85025; 85610

== ENCOUNTER 2023-03-09 07:22 | Outpatient (CLI) | payer MEDICAID, SELFPAY ==
[2023-03-09] VITALS (14 sets, daily range): BP systolic 90–171; BP diastolic 59–108; PULSE 59–69; RESP 12–21; TEMP 37.1; O2SAT 94–97; BMI 41.1
[2023-03-09] MEDS: diphenhydrAMINE 50 mg Capsule PO (08:14)
--- NOTE | 2023-03-09 08:30 | XACV_ITS ---
Exam Room: 2 Ht: 155 cm Wt: 99 kg BSA: 2.12 m2 Gender: Female : 1960 Any Known Allergies: No known allergies Exam Priority: Routine Procedure(s): Procedure Description: Diagnostic procedure Procedure Description: Left Heart Catheterization Procedure Description: Left ventriculography Procedure Description: Coronary Angiography Diagnostic Cath Status: Elective Diagnostic Findings * INDICATION: Chest pain/abnormal stress test. * No significant disease noted in the Left Main, Left Anterior Descending, Right, or Circumflex coronary arteries. Patent prior LAD and RCA stents. * Patent prior LAD and RCA stents. * Coronary angiography shows right dominance. Conclusions 1. No significant disease noted in the Left Main, Left Anterior Descending, Right, or Circumflex coronary arteries. Patent prior LAD and RCA stents. 2. Normal left ventricular systolic function. Ejection fraction of 60%. Recommendations * Aggressive risk factor modification. * Outpatient cardiology follow up in 4 weeks. Interventional RX Recommendation: medical therapy and/or counseling Diagnostic RX Recommendation: medical therapy and/or counseling Ventriculography Ejection Fraction: 60.0 % Pressures Phase:Rest AO : 86 / 70 ( 78 ) @ 11:43:00 AM 125 / 63 ( 90 ) @ 11:49:00 AM 124 / 63 ( 89 ) @ 11:49:00 AM LV : 106 / -2 / 9 @ 11:47:00 AM 113 / -1 / 18 @ 11:48:00 AM 114 / -4 / 14 @ 11:49:00 AM Valves Phase:DefaultPhase AV : 0.0 @ 10:59:12 AM 0.0 @ 10:59:12 AM AV Mean Gradient: 0.0 @ 10:59:12 AM 0.0 @ 10:59:12 AM Clinical Evaluation EBL: 5mL-10mL Procedural Details Procedure Consent Obtained. Admit Source: Out Patient. Pre-Procedure Time Out. Identified patient by full name and date of as verbalized by the patient/guarantor. Does the consent match the physician's order: Yes. Accurate & Complete Informed Consent: Yes. Inpatient/Outpatient History & Physical on Chart: Yes. If H&P is completed, is and addenduem needed: No; If yes, is the addendum complete: N/A. Visualize and Verify Site with Patient/Guarantor: N/A. Relevant Radiology Images available: N/A. Pre-op teaching completed and patient verbalized understanding. The risks, benefits, and alternatives of sedation and/or procedure were discussed by physician. The patient agrees to continue. Procedure started. [facility] Clinical Fraility Score: 4: Vulnerable. Fagoter Indications: Worsening Angina. Chest Pain Symptom Assessment: Typical Angina Symptoms. Correct patient, site and procedure confirmed by cath team. Current diagnosis: Chest Pain. PERRLA. Strong, equal hand inseam leveler bilaterally. Lungs clear x 5 lobes. IV Site on Arrival: 20 gauge in the right anticubital. IV Fluids: 0.9% NaCl at KVO. 0 mL infused prior to laborer. Pre Procedural Pulses: bilateral dorsalis pedis was 2+. Pre Procedural Pulses: bilateral posterior tibial was 1+. Oxygen started at 2liters/min via nasal canula. right groin was prepped with chloroprep then draped in the usual sterile fashion. right radial was prepped with chloroprep then draped in the usual sterile fashion. Physician notified. Baseline sample Acquired. HR: 50 BPM. Physician arrived. Physician scrubbed in. Immediate Pre-Procedure Time Out. Correct Patient: Yes; Correct Procedure: Yes; Correct Site: Yes; Correct Patient Position: Yes; Correct Supplies: Yes; Dried Flammable Prep: Yes; Blood Products Available: N/A;. Lidocaine 1% infiltrated to the right groin. Arterial access obtained with micropuncture set. A 5 sammarinese JL4 catheter in over wire. Multiple views taken of left coronary artery. Catheter removed over the standard wire. A 5 sammarinese JR4 catheter in over wire. Multiple views taken of right coronary artery. Catheter removed over the standard wire. A 5 sammarinese Angled Pig catheter in over wire. EDP Sample taken: LV 106/-3,9; HR: 81 BPM; SpO2: 99%. LV gram performed in ESCALANTE @ 10 mL/second for a total of 30 mL. EDP Sample taken: LV 113/-2,18; HR: 65 BPM; SpO2: 99%. Pullback taken: LV 114/-5,14; AO 125/63(90); Mean: 0mmHg, Peak to Peak: 0mmHg, SEP: 7sec/min; HR: 69 BPM; SpO2: 99%. Catheter out. A Right femoral angiogram was performed to determine safe placement of closure device. Lidocaine 1% infiltrated to the right groin. A Angio-Seal VIP ([facility]) was successful obtaining hemostatsis at the Right Femoral artery insertion site. Lot # [id number] Exp 08/31/23. Angioseal placed without complications. No signs or symptoms of hematoma noted. Sterile dressing applied per usual sterile fashion. Post Procedure: Pulses reassessed and unchanged. PERRLA. Strong, equal hand inseam leveler bilaterally. No VTE prophylaxis required. Medication's Wasted: Lidocaine 1% = 1 mL. Medication's Wasted: Other = Fentanyl 25 mcg. Medication's Wasted: Heparin = 1000 u. Total IV fluids: 35 mL. Post-op diagnosis: Patent prior stents, Non Obstructive CAD. Complications: none. Estimated blood loss: 5mL-10mL. Responsiveness - Normal response to verbal stimuli; alert and oriented, PERRLA. Airway - Unaffected, no intervention required; spontaneous ventilation. Circulation: W/N/L, pulses unchanged. Nausea/Vomiting: No. Procedure completed. Patient transferred by bed to CPRU. Vital chart was stopped. Access Site Site: Right Femoral artery Sheath Size: 6 Fr Hemostasis Method: Angio-Seal VIP ([facility]) Hemostasis Success: Successful Procedure Medications Start: 10:34 AM Stop: 10:34 AM Medication: Versed Amount: 1 mg Route: I.V. Start: 10:34 AM Stop: 10:34 AM Medication: Fentanyl Amount: 50 mcg Route: I.V. Start: 10:37 AM Stop: 10:37 AM Medication: Versed Amount: 1 mg Route: I.V. Start: 10:37 AM Stop: 10:37 AM Medication: Fentanyl Amount: 25 mcg Route: I.V. I, the attending physician, have reviewed and verified all procedure medications. Yes, all medications given per verbal order History/Risk Factors Hypertension: Yes Dyslipidemia: Yes Peripheral Arterial Disease (PAD): No Myocardial Infarction (IL): Yes Obesity: Yes Renal Disease: No Tobacco Use: Never Prior Interventions PCI: Yes CABG: No Valve Surgery: No Date of PCI: 08/30/2018 Report Signatures Finalized by Dontrell Morales MD on 03/20/2023 07:49 PM
--- NOTE | 2023-03-09 10:31 | W.PM.OPSUD ---
Surgery/Procedure H&P Update DATE OF PROCEDURE: March 09, 2023 DATE H&P PERFORMED: 02/24/23 H&P UPDATE INFORMATION: I have reviewed H&P completed within last 30 days, I have examined patient prior to procedure and No changes to prior documentation PREOP DIAGNOSIS: Chest pain/abnormal stress test PRIMARY INDICATION FOR PROCEDURE: Chest pain/abnormal stress test PLANNED PROCEDURE: Operation Date: 03/09/23 08:30 Proposed Procedures p [facility] w/wo 19900,R07.9,R06.02, I25.10,R94.39(Left) - Dontrell Morales M.D Possible percutaneous coronary intervention PATIENT REASSESSED PRIOR TO SEDATION, WITH NO CHANGE NOTED: Yes PHYSICAL EXAM: alert, oriented x 3, clear to auscultation bilaterally and regular rate & rhythm AIRWAY EVAL/ANESTHESIA PLAN: normal airway, ASA III, Local Anesthesia, Risks, benefits & alternatives of sedation and/or procedure discussed and Patient agrees to continue as planned ADDITIONAL INFORMATION: Moderate sedation
--- NOTE | 2023-03-09 11:21 | PC.NURSE ---
received pt from construction laborer post diagnostic left heart cath. pt alert and oriented complains of no pain. angioseal deployed in right groin access with no bruising or hematoma noted. distal pulses palpable. pt to recover in cpru for aprox 30 mins and recover til dc on CSU. pt placed on monitor and will be monitored per protocol.
== END 2023-03-09 17:35 | disposition home or self-care (01) ==
LOC: CCL 07:23 → CSU 11:35
PROVIDERS: PCP Electrodiagnostic Medicine; Visit Provider Internal Medicine
DX: R07.9 Chest pain, unspecified (principal); R94.39 Abnormal result of other cardiovascular function study; Z95.5 Presence of coronary angioplasty implant and graft; E78.5 Hyperlipidemia, unspecified
CPT/HCPCS: 36415; 93458; 96365; 99152; 99153; C1760; C1769; C1887; C1894; G0269; J1644; J2250; J3010; J7030; Q0163; Q9967

== ENCOUNTER 2023-03-11 07:06 | Outpatient (CLI) | payer MEDICAID, SELFPAY ==
--- NOTE | 2023-03-11 07:15 | USCV_ITS ---
Pauly Mcnamara Age: 63 Gender: F : 1960 Exam Date: 03/11/2023 07:21 Ordering Phys: Rosario Jhaveri MD ([email or web address]) Technologist: ANA [place]am [place] [facility] [place] Indication: Intermittent Claudication Risk Factors: Previous Vascular Surgery: RIGHT LEFT BP: 104.0 / 65.00 BP: 123.0/ 28.00 0 0 Waveform Velocity (cm/s) Velocity (cm/s) Waveform Triphasic 131.9 Iliac Prox 101.9 Triphasic Triphasic 112.3 Iliac Mid 101.9 Triphasic Triphasic 106.5 Iliac Distal 101.9 Triphasic Triphasic 116.3 FURNITURE CLEANER 91.6 Triphasic Triphasic 128.5 SFA Prox 104.6 Triphasic Triphasic 87.2 SFA Mid 109.7 Triphasic Triphasic SFA Dist Triphasic 89.5 87.0 Triphasic 72.7 POP 70.6 Triphasic Triphasic 58.1 CLEAN OUT DRILLER 79.4 Triphasic Triphasic 70.1 DPA 89.3 Triphasic 1.1 YUKI 1.2 FINDINGS Mild to moderate scattered plaque in the right iliac artery Minimal plaque in the left iliac artery Normal Doppler flow velocities bilaterally Normal arterial Doppler waveforms Resting YUKI 1.1 on the right and 1.2 on the left CONCLUSIONS Normal resting ABIs bilaterally Mild to moderate scattered plaques in the right iliac artery and minimal plaques in the left iliac artery No evidence of any significant arterial obstruction based on the above findings Dr Regan Palafox MD [facility] (Electronically Signed) Final Date: 11 Mar 2023 16:41 S
== END 2023-03-11 07:07 | disposition home or self-care (01) ==
LOC: RAD 07:09
PROVIDERS: PCP Electrodiagnostic Medicine; Visit Provider Specialist
DX: I73.9 Peripheral vascular disease, unspecified (principal)
CPT/HCPCS: 93925

== ENCOUNTER → 2023-03-17 10:18 | Outpatient (BNVA) | payer MEDICAID, SELFPAY | PROVIDERS: PCP Electrodiagnostic Medicine; Visit Provider Nurse Practitioner Family | DX: I25.10 Atherosclerotic heart disease of native coronary artery without angina pectoris (principal) | CPT/HCPCS: 36415; 80048 ==

== ENCOUNTER → 2025-03-06 13:25 | Outpatient (BNVA) | payer MEDICAID, SELFPAY | PROVIDERS: PCP Electrodiagnostic Medicine; Visit Provider Podiatrist Foot & Ankle Surgery | DX: M79.672 Pain in left foot (principal); M72.2 Plantar fascial fibromatosis | CPT/HCPCS: 73630 ==

== ENCOUNTER → 2025-05-29 09:35 | Outpatient (BNVA) | payer MEDICAID, SELFPAY | PROVIDERS: PCP Electrodiagnostic Medicine; Visit Provider Nurse Practitioner Family | DX: I10 Essential (primary) hypertension (principal) | CPT/HCPCS: 93005 ==

== ENCOUNTER 2025-05-31 10:57 | Outpatient (CLI) | payer MEDICAID, SELFPAY ==
[2025-05-31 12:29] LABS: Hematocrit 39.2 % (36-47); Hemoglobin 12.50 g/dL (11.27-16.99); Mean Corpuscular HGB Conc 31.9 g/dL (30-55); Mean Corpuscular Hemoglobin 28.8 pg (27-33); Mean Corpuscular Volume 90.3 fl (85-98); Nucleated Red Blood Cells % 0 %; Platelet Count 325 10^3/cmm (157-399); Red Blood Count 4.34 10^6/uL (3.85-5.65); White Blood Count 6.03 10^3/uL (3.29-11.43)
[2025-05-31 12:39] LABS: INR 0.98 (0.8-1.2); Partial Thromboplastin Time 26.0 SECONDS (23.9-36.7); Prothrombin Time 13.70 SECONDS (12.1-14.9)
[2025-05-31 12:49] LABS: Anion Gap 14.4 (5-19); Blood Urea Nitrogen 19 mg/dL (8-23); Calcium 9.3 mg/dL (8.5-10.5); Carbon Dioxide 27 mmol/L (22-29); Chloride 102 mmol/L (98-107); Glucose 83 mg/dL (65-115); Osmolality Calculated 289 mOsm/kg (285-295); Potassium 4.4 mmol/L (3.5-5.1); Sodium 139 mmol/L (136-145)
== END 2025-05-31 10:58 | disposition home or self-care (01) ==
LOC: LAB 10:59
PROVIDERS: PCP Electrodiagnostic Medicine; Visit Provider Nurse Practitioner Family
DX: I10 Essential (primary) hypertension (principal)
CPT/HCPCS: 36415; 80048; 85025; 85610; 85730; 86850; 86900

== ENCOUNTER 2025-06-06 07:27 | Outpatient (CLI) | payer MEDICAID, SELFPAY ==
[2025-06-06] VITALS (20 sets, daily range): BP systolic 98–172; BP diastolic 40–116; PULSE 56–74; RESP 12–21; TEMP 36.1–36.7; O2SAT 91–97; BMI 40.6
--- NOTE | 2025-06-06 07:30 | XACV_ITS ---
Exam Room: [facility] Ht: 155 cm Wt: 98 kg BSA: 2.10 m2 Gender: Female : 1960 Any Known Allergies: No known allergies Exam Priority: Routine Procedure(s): Procedure Description: Diagnostic procedure Procedure Description: Left Heart Catheterization Procedure Description: Left ventriculography Procedure Description: Coronary Angiography Diagnostic Cath Status: Elective Diagnostic Findings * The left main is a medium caliber vessel with no significant stenotic lesions. * The Left anterior descending artery is a medium caliber vessel which appears to taper off towards the LV apex. The mid LAD was found to have a stented segment which was found to be patent. The first diagonal branch was found to be a medium caliber vessel, with proximal segmental irregular narrowing of 30 to 40%. * The left circumflex artery is a medium caliber nondominant vessel which was found to have minimal intimal irregularities in the first OM branch. No significant stenotic lesions were noted. * The right coronary artery is a medium caliber dominant vessel with minimal intimal irregularities in the proximal and mid segment. The PLV branch of the artery was found to have 30 to 40% diffuse irregular narrowing. PDA is a relatively smaller caliber vessel with no significant stenotic lesions.. Conclusions 1. 65-year-old white female with history of hypertension, dyslipidemia, type 2 diabetes, previous PCI, is presenting with increasing episodes of chest pain, fatigue and shortness of breath. For further evaluation of her coronary status, a cardiac catheterization was recommended. Patient underwent a left heart catheterization with left and right coronary angiogram and LV angiogram. The findings are as follows. 2. 1. Normal left main. #2 patent mid LAD stented segment with no other significant lesions. Mild disease in the first diagonal branch of the artery. 3. Minimal intimal irregularities in the left circumflex artery. 4. Mild disease in the right coronary artery. LV ejection fraction 65%. LVEDP of 15 mmHg.. 3. Patient was able angiographic's, it was decided to treat the patient medically. Consider workup for a noncardiac cause of chest pain. Diagnostic RX Recommendation: medical therapy and/or counseling LV EDP: 15 mmHg Ventriculography Ejection Fraction: 65.0 % Left Ventriculography Findings: * The LV gram was performed in the ESCALANTE projection. LV cavity appears to be normal size. LV ejection fraction was around 65%. No filling defects are noted. No significant mitral valve prolapse or mitral regurgitation. LVEDP was 15 mmHg.. Pressures Phase:Rest AO : 124 / 72 ( 96 ) @ 10:52:00 AM 158 / 70 ( 107 ) @ 11:01:00 AM 159 / 70 ( 107 ) @ 11:01:00 AM LV : 163 / -9 / 14 @ 11:00:00 AM 158 / -9 / 15 @ 11:01:00 AM 156 / -9 / 17 @ 11:01:00 AM Valves Phase:DefaultPhase AV : 0.0 @ 2:34:46 PM AV Mean Gradient: 0.0 @ 2:34:46 PM Clinical Evaluation EBL: 5mL-10mL Procedural Details Procedure Consent Obtained. Current Diagnosis : Chest Pain. Pre-Procedure Time Out. Identified patient by full name and date of as verbalized by the patient/guarantor. Does the consent match the physician's order: Yes. Accurate & Complete Informed Consent: Yes. Inpatient/Outpatient History & Physical on Chart: Yes. If H&P is completed, is and addenduem needed: No; If yes, is the addendum complete: N/A. Visualize and Verify Site with Patient/Guarantor: N/A. Relevant Radiology Images available: Yes. Pre-op teaching completed and patient verbalized understanding. The risks, benefits, and alternatives of sedation and/or procedure were discussed by physician. The patient agrees to continue. Procedure started. [facility] Clinical Fraility Score: 3: Managing Well. 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 Chest Pain Symptom Assessment: Typical Angina Symptoms. Correct patient, site and procedure confirmed by cath team. Current diagnosis: Chest Pain. PERRLA. Strong, equal hand casing cooker bilaterally. Lungs clear x 5 lobes. IV Site on Arrival: 20 gauge in the left anticubital. IV Fluids: 0.9% NaCl at KVO. 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 Pre Procedural Pulses: bilateral dorsalis pedis was 1+. Pre Procedural Pulses: bilateral posterior tibial was 1+. Pre Procedural Pulses: bilateral radial was 1+. Oxygen started at 2liters/min via nasal canula. bilateral groins was prepped with chloroprep then draped in the usual sterile fashion. Baseline sample Acquired. HR: 55 BPM. Physician arrived. Physician scrubbed in. Immediate Pre-Procedure Time Out. Correct Patient: Yes; Correct Procedure: Yes; Correct Site: Yes; Correct Patient Position: Yes; Correct Supplies: Yes; Dried Flammable Prep: Yes; Blood Products Available: N/A;. Lidocaine 1% infiltrated to the right groin. Arterial access obtained with micropuncture set. A 5 rwandan JL4 catheter in over wire. Multiple views taken of left coronary artery. Catheter removed over the standard wire. A 5 rwandan JR4 catheter in over wire. Multiple views taken of right coronary artery. Catheter removed over the standard wire. A 5 rwandan Angled Pig catheter in over wire. EDP Sample taken: LV 163/-10,14; HR: 64 BPM; SpO2: 97%. LV gram performed in ESCALANTE @ 10 mL/second for a total of 30 mL. EDP Sample taken: LV 158/-10,15; HR: 66 BPM; SpO2: 97%. Pullback taken: LV 156/-10,17; AO 158/70(107); Mean: 0mmHg, Peak to Peak: 0mmHg, SEP: 14sec/min; HR: 64 BPM; SpO2: 97%. Catheter removed over the standard wire. Physician scrubbed out. Physician review of cine films. A Suture was successful obtaining hemostatsis at the Right Femoral artery insertion site. Sheath(s) sutured into position with 2-0 silk and sterile 4x4's and Op-site applied over the site. No oozing or signs and symptoms of hematoma noted. Arterial sheath flushed and connected to tranducer and pressure bag with heparinized saline. Post Procedure: Pulses reassessed and unchanged. PERRLA. Strong, equal hand casing cooker bilaterally. No VTE prophylaxis required. Vital chart was stopped. Medication's Wasted: Other = Fentanyl 50 mcg. Medication's Wasted: Lidocaine 1% = 10 mL. Total IV fluids: 30 mL. Post-op diagnosis: Non-obstructive CAD. Complications: None. Estimated blood loss: 5mL-10mL. Responsiveness - Normal response to verbal stimuli; alert and oriented, PERRLA. Airway - Unaffected, no intervention required; spontaneous ventilation. Circulation: W/N/L, pulses unchanged. Nausea/Vomiting: No. Procedure completed. Patient transferred by bed to 1st floor. Access Site Site: Right Femoral artery Sheath Size: 6 Fr Hemostasis Method: Suture Hemostasis Success: Successful Procedure Medications Start: 9:45 AM Stop: 9:45 AM Medication: Versed 1 mg and Fentanyl 25 mcg Amount: 1 Route: I.V. Start: 9:49 AM Stop: 9:49 AM Medication: Heparin Amount: 1500 units Route: I.V. Start: 9:51 AM Stop: 9:51 AM Medication: Versed Amount: 1 mg Route: I.V. I, the attending physician, have reviewed and verified all procedure medications. Yes, all medications given per verbal order History/Risk Factors Hypertension: Yes Dyslipidemia: Yes Peripheral Arterial Disease (PAD): No Myocardial Infarction (CO): No Obesity: Yes Renal Disease: No Tobacco Use: Never Prior Interventions PCI: Yes CABG: No Valve Surgery: No Date of PCI: 08/30/2018 Report Signatures Finalized by Dr Regan Palafox MD [facility] on 06/07/2025 11:06 PM
--- NOTE | 2025-06-06 09:34 | P.HPUD_ITS ---
Surgery/Procedure H&P Update DATE OF PROCEDURE: June 06, 2025 DATE H&P PERFORMED: 05/29/25 H&P UPDATE INFORMATION: I have reviewed H&P completed within last 30 days, I have examined patient prior to procedure and No changes to prior documentation PREOP DIAGNOSIS: ASHD PRIMARY INDICATION FOR PROCEDURE: Increasing episodes of chest pain, previous PCI of the LAD and RCA PLANNED PROCEDURE: Operation Date: 06/06/25 08:30 Proposed Procedures p Cardiac Catheterization - [facility] w/wo LV and Coros(Left) - Regan Palafox MD PATIENT REASSESSED PRIOR TO SEDATION, WITH NO CHANGE NOTED: Yes PHYSICAL EXAM: alert, oriented x 3, clear to auscultation bilaterally and regular rate & rhythm AIRWAY EVAL/ANESTHESIA PLAN: ASA III, Monitored Anesthesia, Local Anesthesia, Risks, benefits & alternatives of sedation and/or procedure discussed and Patient agrees to continue as planned
--- NOTE | 2025-06-06 10:10 | PM.OP ---
Operative Report Date of procedure: June 06, 2025 Surgeon: Regan Palafox MD Procedure: This patient underwent left heart catheterization with a left and right coronary angiogram and LV angiogram today through the right femoral artery in the groin. She was found to have patent stented segments of the LAD and the right coronary artery. No significant lesions in the other vessels. Normal LV ejection fraction. LVEDP, within normal limits Plan is to look for another cause for the chest pain and shortness of breath
--- NOTE | 2025-06-06 17:13 | PC.NURSE ---
Sheath pulled from right groin at 1100. Controlled gained at 1101 and pressure held for 15 min. When pressure was relieved, no hematoma nor blood noted. Gauze placed over puncture site and secured with tegaderm. Patient bedrest up at 1630. At 1632 patient ambulated to the bathroom on her own and no new oozing or blood appeared at puncture site. Per conditional discharge instructions, patient cleared to go home. Nurse discussed discharge instructions with patient and patient verbalized understanding. Patient wheeled out to vehicle at 1711. No hematoma formation occured.
== END 2025-06-06 17:13 | disposition home or self-care (01) ==
LOC: CCL 07:31 → CSU 10:13
PROVIDERS: PCP Electrodiagnostic Medicine; Visit Provider Internal Medicine Cardiovascular Disease
DX: I25.10 Atherosclerotic heart disease of native coronary artery without angina pectoris (principal); I10 Essential (primary) hypertension; E78.5 Hyperlipidemia, unspecified; E66.9 Obesity, unspecified; Z68.41 Body mass index [BMI] 40.0-44.9, adult; Z79.82 Long term (current) use of aspirin; K21.9 Gastro-esophageal reflux disease without esophagitis
CPT/HCPCS: 36415; 93458; 99152; 99153; C1769; C1887; C1894; J1644; J2250; J3010; J7030; J9999; Q0163; Q9967

== ENCOUNTER → 2025-06-15 08:57 | Outpatient (BNVA) | payer MEDICAID, SELFPAY | PROVIDERS: PCP Electrodiagnostic Medicine; Visit Provider Nurse Practitioner Family | DX: I10 Essential (primary) hypertension (principal); I25.10 Atherosclerotic heart disease of native coronary artery without angina pectoris | CPT/HCPCS: 36415; 80048; 85025 ==

== ENCOUNTER 2025-06-22 06:44 | Outpatient (CLI) | payer MEDICAID, SELFPAY ==
--- NOTE | 2025-06-22 07:15 | USCV_ITS ---
Anders Pauly Age: 65 Gender: F : 1960 Exam Date: 06/22/2025 06:53 Ordering Phys: Leonor Samuel NP Technologist: ANA Exam Location: [facility] Indication: SoB BP: 126 / 70 HR: 55 Rhythm: Sinus Technical Quality: Adequate MEASUREMENTS (Male / Female) Normal Values 2D ECHO LV Diastolic Diameter PLAX 5.2 cm 4.2 - 5.9 / 3.9 - 5.3 cm IVS Systolic Thickness 2.1 cm LVPW Diastolic Thickness 1.2 cm 0.6 - 1.0 / 0.6 - 0.9 cm LVPW Systolic Thickness 1.7 cm LVOT Diameter 2.0 cm LV Ejection Fraction 2D Teich 65.2 % LV Ejection Fraction MOD 4C 67.1 % LV Ejection Fraction MOD 2C 58.6 % LV Ejection Fraction 2C AL 61.2 % LA Diameter 3.9 cm RA Systolic Volume 4C AL 39.8 ml RA Systolic Volume 4C MOD 37.8 ml LA Sys Volume AL 69.0 cm cubed LA Sys Volume Index AL 32.9 cm cubed/m squared Aorta at Sinotubular Diameter 2.0 cm M-MODE LA Ao Ratio MM 1.5 AV Cusp Separation MM 1.9 cm DOPPLER AV Peak Velocity 118.0 cm/s LVOT Peak Velocity 119.0 cm/s AV Area Cont Eq vti 3.0 cm squared AV Area Cont Eq pk 3.1 cm squared MV Peak Velocity 88.0 cm/s MV Area PHT 5.6 cm squared Mitral E to A Ratio 1.4 TR Peak Velocity 101.0 cm/s TR Peak Gradient 4.1 mmHg TV Peak E Velocity 75.0 cm/s PV Peak Velocity 140.0 cm/s FINDINGS Left Ventricle Normal left ventricular size and systolic function, EF 61%.. Mild left ventricular hypertrophy. No regional wall motion abnormalities. Right Ventricle The right ventricle is normal in size and function. Right Atrium The right atrium is normal in size. Left Atrium Mildly increased left atrial size. Mitral Valve No gross abnormalities noted Aortic Valve No gross abnormalities noted Tricuspid Valve No gross abnormalities noted Pulmonic Valve No gross abnormalities noted Pericardium Normal pericardium without effusion. Aorta Normal aortic annulus size. IVC Normal inferior vena cava. CONCLUSIONS Normal left ventricular size and systolic function, EF 61%.. Mild left ventricular hypertrophy. No regional wall motion abnormalities. Mildly increased left atrial size. No gross valvular abnormalities noted There is no pericardial effusion. There are no intracardiac masses. No similar previous studies are available for comparison Dr Regan Palafox MD [facility] (Electronically Signed) Final Date: 23 June 2025 10:54 S
== END 2025-06-22 06:45 | disposition home or self-care (01) ==
LOC: RAD 06:45
PROVIDERS: PCP Electrodiagnostic Medicine; Visit Provider Nurse Practitioner Family
DX: I11.9 Hypertensive heart disease without heart failure (principal)
CPT/HCPCS: 93306

== ENCOUNTER 2025-10-09 16:10 | Outpatient (CLI) | payer MEDICAID, SELFPAY ==
--- NOTE | 2025-10-09 16:13 | CT_ITS ---
WS: [id number] CT PARANASAL SINUSES HISTORY: CHRONIC SINUSITIS TECHNIQUE: Contiguous 2.5 mm axial images obtained through the sinuses. Images are reconstructed in sagittal and coronal planes. All CT scans at [facility] use at least one of these dose optimization techniques: automated exposure control; mA and/or kV adjustment per patient size (includes targeted exams where dose is matched to clinical indication); or iterative reconstruction. DLP: 324.64 mGy.cm COMPARISON: 12/11/2011 Frontal sinuses: Normal. Sphenoid sinus: Normal. Ethmoid sinuses: Normal. Maxillary sinus: Normal. No air-fluid levels. Ostiomeatal unit: Normal and widely patent. Very minimal spurring from the nasal septum extending to the LEFT. No destructive bone process. Visualized orbits and globes are negative. CT/CT sinus wo con* [id number] IMPRESSION: Normal sinus CT.
== END 2025-10-09 16:11 | disposition home or self-care (01) ==
LOC: RAD 16:11
PROVIDERS: PCP Electrodiagnostic Medicine; Visit Provider Electrodiagnostic Medicine
DX: J32.9 Chronic sinusitis, unspecified (principal)
CPT/HCPCS: 70486